=== PATIENT | female | born 1975 | race Caucasian/White ===

== ENCOUNTER 2017-02-11 15:29 | Emergency (ER) | payer BC ==
[2017-02-11 15:34] VITALS: BMI 28.3
--- NOTE | 2017-02-11 16:16 | DR.DIZZY ---
HPI - Time seen Time seen: 16:00 - PCP Primary Care Physician: NOHEMY BOLES - Complaint Chief Complaint Doctor Comments: I agree with statement. Patient states that she had her blood pressure check and it was elevated She denies a history of cardiopulmonary disease. She reports that during the episoed of dizziness she had tightness in chest-midsternum. Chief Complaint:: PT. C/O HIGH BLOOD PRESSURE AND DIZZINESS WHICH BEGAN YESTERDAY. PT. STATES SHE HAS BEEN HAVING SOME INTERMITTENT CHEST TIGHTNESS AND SHARP PAINS. PT. ALSO C/O SLIGHT HEADACHE. - Source History Provided: Patient - Mode of Arrival Mode of Arrival: Ambulatory - Timing Onset of Chief Complaint: 02/10/17 - Duration Duration: Since Onset Duration: Days (1) - Location of Weakness Weakness Location: None - Context Onset: With light exertion Does pt take pot. toxic medication?: No History of: None Stroke Symptoms: None - Severity Severity: Normal activity level - Modifying factors Worsens: Turning [place] - Associated signs and symptoms Associated Signs and Symptoms: Vertigo PMH - PMH Past Medical History: No Past Surgical History: Yes Surgical History: Appendectomy, Cholecystectomy, [employer] Surgery, Hysterectomy Past Surgical History Comment: D&C - Family History History of Family Medical Conditions: Yes Family Medical History: [place], Coronary Artery Disease, Hypertension - Social History Does patient currently use any type of tobacco product: No Have you used tobacco products in the last 12 months: No Type of Tobacco Use: None Does any household member use tobacco: No Alcohol Use: None Do you use any recreational Drugs:: No Lives With: Spouse Lives Where: Home - infectious screening In the last 2 months have you had wt loss of >10#?: NO Have you had fever, night sweats or hemotysis?: No Have you traveled outside the country in the last 6 months?: No Isolation: Standard ROS - Review of Systems Eyes: No Symptoms Reported ENTM: No Symptoms Reported Respiratoy: No Symptoms Reported Cardiovascular: No Symptoms Reported Gastrointestinal/Abdominal: No Symptoms Reported Genitourinary: No Symptoms Reported Neurological: No Symptoms Reported Musculoskeletal: No Symptoms Reported Integumentary: No Symptoms Reported Hematologic/Lymphatic: No Symptoms Reported Endocrine: No Symptoms Reported Psychiatric: No Symptoms Reported All Other Systems: Reviewed and Negative PE - Vital Signs Vitals: Temperature 98.0 F Pulse Rate [Standing] 78 Pulse Rate [Sitting] 77 Pulse Rate [Lying] 76 Pulse Rate 97 Respiratory Rate 17 Blood Pressure [Standing] 134/73 Blood Pressure [Sitting] 138/73 Blood Pressure [Lying] 122/75 Blood Pressure 133/78 O2 Sat by Pulse Oximetry 100 - General Limitations: No Limitations General Appearance: Alert, In No Apparent Distress - Head Head Exam: Normal Inspection, Atraumatic - Eyes Eye exam: Normal Appearance, PERRL, EOMI Pupils: Regular, Round: Bilateral Sclera/Conjunctival: Normal Inspection: Bilateral Anterior Chamber: Normal Inspection: Bilateral Posterior Chamber: Deferred: Bilateral - ENT ENT Exam: Normal Exam, Normal Oropharynx, Normal External Ear Exam - Neck Neck Exam: Normal Inspection - Chest Chest Inspection: Normal Inspection - Respiratory Respiratory Exam: Normal Lung Sounds Bilat Respiratory Exam: Bilateral Clear to Auscultation - Cardiovascular Cardiovascular Exam: Regular Rate - Abdominal Exam Abdominal Exam: Normal Inspection, Normal Bowel Sounds Abdominal Tenderness: negative: RUQ, RLQ, LUQ, LLQ, Epigastrium, Suprapubic, Diffuse, Mild, Moderate, Severe, Other - Rectal Rectal Exam: Deferred - Extremeties Extremities Exam: Normal Inspection, Full ROM, Tenderness - Back Back Exam: Normal Inspection, Full ROM - Neurologic Neurological Exam: Alert, Oriented X3, CN II-XII Intact Cranial Nerve Exam: EOM Function (II, III, IV, ): Normal Cerebellar Function: Finger to Nose: Normal, Heel to [place]: Normal Cerebellar Function: Normal Gait Motor Strength - LUE: 3/5 Motor Strength - RUE: 3/5 Motor Strength - LLE: 3/5 - Psychiatric Psychiatric Exam: Normal Affect, Normal Mood - Skin Skin Exam: Warm, Dry, Intact ROR - Labs Reviewed Result Diagrams: 02/11/17 16:18 02/11/17 16:18 Laboratory: WBC 6.0 X10^3/uL (3.6-10.0) 02/11/17 16:18 RBC 4.13 X10^6/uL (3.5-5.4) 02/11/17 16:18 Hgb 12.5 g/dL (12.0-16.0) 02/11/17 16:18 Hct 36.9 % (36.0-47.0) 02/11/17 16:18 MCV 89.4 fL (80.0-100.0) 02/11/17 16:18 MCH 30.3 pg (27.0-34.0) 02/11/17 16:18 MCHC 33.9 g/dL (33.0-35.0) 02/11/17 16:18 RDW 12.2 % (11.6-16.5) 02/11/17 16:18 Plt Count 254 X10^3/uL (150.0-450.0) 02/11/17 16:18 MPV 8.9 fL (7.4-11.0) 02/11/17 16:18 Neut % 61.8 % (42.0-75.0) 02/11/17 16:18 Lymph % 30.2 % (21.0-51.0) 02/11/17 16:18 [place] % 6.2 % (0.0-13.0) 02/11/17 16:18 Eos % 1.1 % (0.9-2.9) 02/11/17 16:18 Baso % 0.7 % (0.2-1.0) 02/11/17 16:18 Neut # 3.7 x10^3/uL (2.2-4.8) 02/11/17 16:18 Lymph # 1.8 X10^3/uL (1.3-2.9) 02/11/17 16:18 [place] # 0.4 x10^3/uL (0.3-0.8) 02/11/17 16:18 Eos # 0.1 x10^3/uL (0.0-0.2) 02/11/17 16:18 Baso # 0.0 X10^3/uL (0.0-0.1) 02/11/17 16:18 Absolute Nucleated RBC 0.0 /100WBC 02/11/17 16:18 Sodium 142 mmol/L (136-145) 02/11/17 16:18 Corrected Sodium 142 mmol/L (136-145) 02/11/17 16:18 Potassium 4.3 mmol/L (3.5-5.1) 02/11/17 16:18 Chloride 105 mmol/L (98-107) 02/11/17 16:18 Carbon Dioxide 34.4 mmol/L (21-32) H 02/11/17 16:18 BUN 13 mg/dL (7-18) 02/11/17 16:18 Creatinine 0.81 mg/dL (0.55-1.02) 02/11/17 16:18 Est GFR (MDRD) Af Amer > 60 (>60) 02/11/17 16:18 Est GFR (MDRD) Non-Af > 60 (>60) 02/11/17 16:18 Glucose 115 mg/dL (65-99) H 02/11/17 16:18 Calcium 9.0 mg/dL (8.5-10.1) 02/11/17 16:18 Corrected Calcium TNP 02/11/17 16:18 Total Bilirubin 0.40 mg/dL (0.2-1.0) 02/11/17 16:18 AST 16 Units/L (15-37) 02/11/17 16:18 ALT 19 Units/L (12-78) 02/11/17 16:18 Alkaline Phosphatase 91 Units/L (46-116) 02/11/17 16:18 Creatine Kinase 75 Units/L (26-192) 02/11/17 16:18 CK-MB (CK-2) < 1.0 ng/mL (0-4.0) 02/11/17 16:18 CK/CKMB % Calc 1.3 % (<4) 02/11/17 16:18 Troponin I < 0.02 ng/mL (0-1.5) 02/11/17 16:18 Total Protein 7.2 g/dL (6.4-8.2) 02/11/17 16:18 Albumin 3.7 g/dL (3.4-5.0) 02/11/17 16:18 Globulin 3.5 g/dL (2.5-4.5) 02/11/17 16:18 Albumin/Globulin Ratio 1.1 Ratio (1.1-2.1) 02/11/17 16:18 Specimen Type Clean catch urine 02/11/17 16:25 Urine Color Yellow (YELLOW) 02/11/17 16:25 Urine Appearance Hazy (CLEAR) 02/11/17 16:25 Urine pH 6.5 (5.0 - 8.0) 02/11/17 16:25 Ur Specific [place] 1.010 (1.000-1.030) 02/11/17 16:25 Urine Protein Negative (NEGATIVE) 02/11/17 16:25 Urine Glucose (UA) Negative (NEGATIVE) 02/11/17 16:25 Urine Ketones Negative (NEGATIVE) 02/11/17 16:25 Urine Occult Blood 1+ (NEGATIVE) 02/11/17 16:25 Urine Nitrite Negative (NEGATIVE) 02/11/17 16:25 Urine Bilirubin Negative (NEGATIVE) 02/11/17 16:25 Urine Urobilinogen Normal (NORMAL) 02/11/17 16:25 Ur Leukocyte Esterase Negative (NEGATIVE) 02/11/17 16:25 Urine RBC 0-2 /HPF (NEGATIVE) 02/11/17 16:25 Urine WBC 0-2 /HPF (NEGATIVE) 02/11/17 16:25 Ur Squamous Epith Cells Few /HPF (NEGATIVE) 02/11/17 16:25 Urine Bacteria Trace /HPF (NEGATIVE) 02/11/17 16:25 Ur Culture Indicated? No/not indicated 02/11/17 16:25 - XRAY XRAY Interpreted by: Radiologist (No acute intraparenchymal hemorrhage or mass can be identified. No extra axial fluid collections are seen. No alteration in the attenuation of the brain parenchyma can be identified to sugges acute or subacute ischemic change. The ventricular systme is symmnetric and nondilated. The extracranial structures are grossly unremarkable.) - Diagnosis Discharge Problem: Vertigo - Discharge Plan Condition: Stable - Follow ups/Referrals Follow ups/Referrals: NOHEMY BOLES [Primary Care Provider] - 3 days - Instructions
[2017-02-11 16:26] LABS: BASOPHILS % (AUTO) 0.7 % (0.2-1.0); EOSINOPHILS # (AUTO) 0.1 x10^3/uL (0.0-0.2); EOSINOPHILS % (AUTO) 1.1 % (0.9-2.9); HEMATOCRIT 36.9 % (36.0-47.0); HEMOGLOBIN 12.5 g/dL (12.0-16.0); LYMPHOCYTES # (AUTO) 1.8 X10^3/uL (1.3-2.9); LYMPHOCYTES % (AUTO) 30.2 % (21.0-51.0); MEAN CORPUSCULAR HEMOGLOBIN 30.3 pg (27.0-34.0); MEAN CORPUSCULAR HGB CONC 33.9 g/dL (33.0-35.0); MEAN CORPUSCULAR VOLUME 89.4 fL (80.0-100.0); MEAN PLATELET VOLUME 8.9 fL (7.4-11.0); MONOCYTES # (AUTO) 0.4 x10^3/uL (0.3-0.8); MONOCYTES % (AUTO) 6.2 % (0.0-13.0); NEUTROPHILS # (AUTO) 3.7 x10^3/uL (2.2-4.8); NEUTROPHILS % (AUTO) 61.8 % (42.0-75.0); PLATELET COUNT 254 X10^3/uL (150.0-450.0); RED BLOOD COUNT 4.13 X10^6/uL (3.5-5.4); RED CELL DISTRIBUTION WIDTH 12.2 % (11.6-16.5)
[2017-02-11 16:33] LABS: BILIRUBIN,URINE NEGATIVE (NEGATIVE); BLOOD/HEMOGLOBIN,URINE 1+ (NEGATIVE); GLUCOSE, URINE NEGATIVE (NEGATIVE); KETONES,URINE NEGATIVE (NEGATIVE); LEUKOCYTE ESTERASE ,URINE NEGATIVE (NEGATIVE); NITRITES,URINE NEGATIVE (NEGATIVE); PH,URINE 6.5 (5.0 - 8.0); PROTEIN,URINE NEGATIVE (NEGATIVE); UROBILINOGEN,URINE NORMAL (NORMAL)
[2017-02-11 16:35] LABS: APPEARANCE,URINE HAZY (CLEAR); COLOR,URINE YELLOW (YELLOW); RBC,URINE 0-2 /HPF (NEGATIVE); SQUAMOUS EPITHELIAL CELL,UR FEW /HPF (NEGATIVE)
[2017-02-11 16:36] LABS: BACTERIA,URINE TRACE /HPF (NEGATIVE)
[2017-02-11 16:45] LABS: BLOOD UREA NITROGEN 13 mg/dL (7-18); CARBON DIOXIDE 34.4 mmol/L (21-32); CHLORIDE 105 mmol/L (98-107); COR NA(FOR HYPERGLY) 142 mmol/L (136-145); CREATININE 0.81 mg/dL (0.55-1.02); GLUCOSE 115 mg/dL (65-99); SODIUM 142 mmol/L (136-145); TROPONIN I < 0.02 ng/mL (0-1.5); eGFR BLACK RACES > 60 (>60); eGFR NON BLACK RACES > 60 (>60)
[2017-02-11 17:00] LABS: ALANINE AMINOTRANSFERASE 19 Units/L (12-78); ALBUMIN 3.7 g/dL (3.4-5.0); ALKALINE PHOSPHATASE 91 Units/L (46-116); ASPARTATE AMINO TRANSFERASE 16 Units/L (15-37); CKMB % 1.3 % (<4); CREATINE KINASE 75 Units/L (26-192); CREATINE KINASE MB < 1.0 ng/mL (0-4.0); TOTAL PROTEIN 7.2 g/dL (6.4-8.2)
[2017-02-11 17:47] VITALS: BP 122/75
[2017-02-11] MEDS ORDERED: ANTIVERT TAB 25 MG ONE (17:50)
[2017-02-11] MEDS ORDERED: ANTIVERT TAB 25 MG PO ONE (17:50)
--- NOTE | 2017-02-11 17:53 | CT ---
CT brain without contrast Indication: Hypertension, dizziness Comparison: None available Technique: Multiple axial images of the brain were obtained from the skull base to the vertex without administr ation of IV contrast. Coronal and sagittal images were also provided. Radiation dose reduction techniques were performed utilizing adjustment for MA/kVP based on patient body size. Findings: No acute intraparenchymal hemorrhage or mass can be identified. No extra-axial fluid collections ar e seen. No alteration in the attenuation of the brain parenchyma can be identified to suggest acute or subacute ischemic change. The ventricular system is symmetric and nondilated. The extracranial structures are grossly unremarkable. IMPRESSION: 1. No acute intracranial process is identified. Reported By:
== END 2017-02-11 18:05 | disposition home or self-care (01) ==
LOC: ER 15:50
DX: R42 Dizziness and giddiness (principal); R51 Headache
CPT/HCPCS: 36415; 70450; 80053; 81001; 82550; 82553; 84484; 85025; 93005; 93010; 99283

== ENCOUNTER → 2017-06-03 | Outpatient (CLI) | payer BC ==
--- NOTE | 2017-06-09 15:54 | US ---
HISTORY: 42 year old female with palpable left breast lump. Comparison: 05/23/2016 FINDINGS: Diagnostic mammogram: Cc and MLO projections of the right and left breast were obtained. Heterogeneous fibroglandular tiss ue is seen to be present. Surgical marker can be seen in the left breast. No significant architectura l distortion, mass or clustered microcalcifications can be observed to suggest malignancy. Diagnostic breast ultrasound: 3 mm cyst at 3 o'clock within the left breast, 2 cm from the nipple. IMPRESSION: 1. NO RADIOGRAPHIC EVIDENCE OF MALIGNANCY. 2. 3 mm cyst is unlikely to represent patient's palpable abnormality. ACR CATEGORY 2- benign findings Recommendation: Yearly screening mammogram. Diagnostic CAD was utilized and reviewed. * 0 (ZERO) - ASSESSMENT INCOMPLETE; ADDITIONAL IMAGING IS NEEDED. * 1/1 (ONE) - NEGATIVE. * 2/II (TWO) - BENIGN FINDINGS. * 3/III (THREE) - PROBABLY BENIGN FINDING; SHORT INTERVAL FOLLOW-UP SUGGESTED. * 4/IV (FOUR) - SUSPICIOUS ABNORMALITY; BIOPSY SHOULD BE CONSIDERED. * 5/V - HIGHLY SUSPICIOUS OF MALIGNANCY; BIOPSY SHOULD BE PERFORMED. A NEGATIVE X-RAY REPORT SHOULD NOT DELAY BIOPSY IF A DOMINANT OR CLINICALLY SUSPICIOUS MASS IS PRESENT; 4 TO 8 PERCENT OF CANCERS ARE NOT IDENTIFIED BY X-RAY. A NEGA TIVE REPORT MAY REINFORCE THE CLINICAL IMPRESSION. ADENOSIS AND DENSE BREASTS MAY OBSCURE AN UNDERLY ING NEOPLASM. Reported By:
== END ==
LOC: RAD 12:22
PROVIDERS: ATTEND Surgery
DX: N60.02 Solitary cyst of left breast (principal); R92.8 Other abnormal and inconclusive findings on diagnostic imaging of breast; N62 Hypertrophy of breast
CPT/HCPCS: 76642; 77066